=== PATIENT | male | born 1985 | race American Indian/Alaskan Native ===

== ENCOUNTER 2019-11-08 18:34 | Emergency (ER) | payer MEDICAID ==
[2019-11-08 19:40] VITALS: BP 136/76
--- NOTE | 2019-11-08 19:42 | Event Note ---
ED Screening Note Date of service: 11/08/19 Time: 19:38 ED Screening Note: 34 y o male presents with left sided shoulder to arm to back pain worsens with movement an sometimes spontaneous symptoms started last week wednesday, woke up with sx denies injury or trauma or fall limited ROM of neck to left side limited ROM of left arm tenderness to palpation This initial assessment/diagnostic orders/clinical plan/treatment(s) is/are subject to change based on patients health status, clinical progression and re- assessment by fellow clinical providers in the ED. Further treatment and workup at subsequent clinical providers discretion. Patient/guardian urged not to elope from the ED as their condition may be serious if not clinically assessed and managed. Initial orders include: xr cervical
--- NOTE | 2019-11-08 21:08 | Cat Scan Report ---
Exam: CT cervical spine History: neck pain; Technique: Contiguous thin cut axial images obtained through the cervical spine. Sagittal and vasquez l reconstructions performed by the technologist. All CT scans at this location are performed using CT dose reduction for ALARA by means of automated exposure control. Findings: No priors. There is no evidence of fracture or traumatic subluxation. Vertebral bodies are normal in height and alignment. Intervertebral disc spaces are well-maintained. Small midline bulging disc is seen at C3-C4 C4-C5 dis c levels. Neuroforamina are normal. Disc protrusion is seen at C5-C6 disc level extending laterally bilaterally more towards the right si de. C6-C7 and C7-T1 disc space is normal. No significant degenerative change seen in the uncinate or facet joints. No significant canal stenosi s or osseous foraminal narrowing. Fatty stranding in the dorsal subcutaneous fat Impression: Disc protrusion at C5-C6 disc level extending bilaterally more to the right side Signer Name: Pierre Garza MD Signed: 11/08/2019 9:04 PM Workstation Name: [id number]
--- NOTE | 2019-11-08 22:46 | Emergency Department Report ---
ED Neck Pain HPI Chief Complaint: Neck Pain/Injury Stated Complaint: TIGHTNESS IN CHEST/PAIN IN LEFT SHOULDER Time Seen by Provider: 11/08/19 22:00 Duration: 4 Days Neck Pain Location: Posterior Neck Severity: severe Mechanism: Awkward Position Symptoms: Yes Pain with Movement, Yes Radiation to Left Upper Ext, No Radiation to Right Upper Ext, No Numbness, No Weakness, No Previous History Other History: This is a 34-year-old -[place] male who presents to the emergency room with posterior neck pain radiating to the left shoulder for 4 to 5 days. Patient states he think he slept the wrong way on multiple pillows. He reports pain is worse when he turned his neck to the left and radiates to left upper extremity. He also reports pain is worse when he elevates left arm. He denies prior medical history. Currently not taking anything for symptomatic relief. ED Review of Systems ROS: Stated complaint: TIGHTNESS IN CHEST/PAIN IN LEFT SHOULDER Other details as noted in HPI Constitutional: denies: chills, fever Respiratory: denies: cough, shortness of breath, wheezing Cardiovascular: denies: chest pain, palpitations Gastrointestinal: denies: abdominal pain, nausea, diarrhea Musculoskeletal: arthralgia (Posterior neck pain). denies: back pain, joint swelling Skin: denies: rash, lesions Neurological: denies: headache, weakness, paresthesias Psychiatric: denies: anxiety, depression ED Past Medical Hx - Past Medical History Previous Medical History?: No - Surgical History Past Surgical History?: No - Social History Smoking Status: Never Smoker Substance Use Type: None - Medications Home Medications: Home Medications Medication Instructions Recorded Confirmed Last Taken Type Methocarbamol [Robaxin] 500 mg PO BID PRN #15 tablet 11/08/19 Unknown Rx traMADoL [Ultram 50 MG tab] 50 mg PO Q6HR PRN #12 tablet 11/08/19 Unknown Rx Neck Pain Exam - Exam General: Vital signs noted. No distress. Alert and acting appropriately. HEENT: No Facial Pain, No Scalp Tenderness, No Contusion, No Abrasion, No Laceration Neck Pain: Yes Midline Tenderness (C3-C4, no step-off, no deformity), Yes Pain with Rotation Right, Yes Pain with Extension, Yes Pain with Flexion, Yes pain with R Lateral Flexion, No Right Paraspinal Tenderness, No Left Paraspinal Tenderness, No Right Trapezius Tenderness, No Left Trapezius Tenderness, No Pain with Rotation Left, No Pain with L Lateral Flexion Chest: Yes Clear Lung Sounds, No Pain with Respirations Heart: Yes Regular, No Murmur Back: No Thoracic Tenderness, No Lumbar Tenderness Neuro: No Numbness, No Weakness, No Normal Reflexes, No Radicular Deficits ED Course Vital Signs 11/08/19 19:38 Temperature 98.9 F Pulse Rate 72 Respiratory 18 Rate Blood Pressure 136/76 O2 Sat by Pulse 99 Oximetry ED Medical Decision Making - Radiology Data Radiology results: report reviewed Exam: CT cervical spine History: neck pain; Technique: Contiguous thin cut axial images obtained through the cervical spine. Sagittal and coronal reconstructions performed by the technologist. All CT scans at this location are performed using CT dose reduction for ALARA by means of automated exposure control. Findings: No priors. There is no evidence of fracture or traumatic subluxation. Vertebral bodies are normal in height and alignment. Intervertebral disc spaces are well-maintained. Small midline bulging disc is seen at C3-C4 C4-C5 disc levels. Neuroforamina are normal. Disc protrusion is seen at C5-C6 disc level extending laterally bilaterally more towards the right side. C6-C7 and C7-T1 disc space is normal. No significant degenerative change seen in the uncinate or facet joints. No significant canal stenosis or osseous foraminal narrowing. Fatty stranding in the dorsal subcutaneous fat Impression: Disc protrusion at C5-C6 disc level extending bilaterally more to the right side - Medical Decision Making This is a 34-year-old male who presents to the emergency room with posterior neck pain radiating to the left upper extremity x3 to 4 days. Vitals are stable. Patient in no acute distress. No significant past medical history. Tenderness along C3 and C4, no step-off, no deformity. Limited range of motion secondary to pain. A CT of C-spine was obtained. Disc protrusion at C5-C6 disc level extending bilaterally more to the right side. Referral to orthopedic surgeon for continued care. Start muscle relaxants and NSAIDs for pain. Patient discharged home stable with strict return instructions. Follow-up with PCP in 2 to 3 days. Critical care attestation.: If time is entered above; I have spent that time in minutes in the direct care of this critically ill patient, excluding procedure time. ED Disposition Clinical Impression: Cervical disc disease with myelopathy, Neck pain, Bulging disc Disposition: DC- TO HOME OR SELFCARE Is pt being admited?: No Condition: Stable Instructions: Cervical Radiculopathy (ED), Degenerative Disc Disease (ED) Additional Instructions: Rest Use ice or heat on affected area for 20 minutes and off for 2 hours. Take pain medication as needed for pain. Don't drive or operate heavy machinery while taking muscle relaxers because they may cause drowsiness. Follow up with Primary Care Provider in 2-3 days. Prescriptions: Methocarbamol [Robaxin] 500 mg PO BID PRN #15 tablet PRN Reason: Muscle Spasm traMADoL [Ultram 50 MG tab] 50 mg PO Q6HR PRN #12 tablet PRN Reason: Pain Referrals: HANS FAYE MD [Primary Care Provider] - 3-5 Days [facility] [Provider Group] - 3-5 Days MAG BUCHANAN MD [Staff Physician] - 3-5 Days Forms: Work/School Release Form(ED) Time of Disposition: 23:09
== END 2019-11-08 23:20 | disposition home or self-care (01) ==
LOC: ED 18:34
DX: M50.022 Cervical disc disorder at C5-C6 level with myelopathy (principal); M50.221 Other cervical disc displacement at C4-C5 level; Z79.899 Other long term (current) drug therapy
CPT/HCPCS: 72125